=== PATIENT | male | born 1950 ===

== ENCOUNTER → 2018-08-30 | Outpatient (CLI) | payer MEDICARE, BC ==
--- NOTE | 2018-08-30 08:39 | RADIOLOGY REPORT (SQ) ---
EXAM DESCRIPTION: MRI LUMBAR SPINE WITHOUT COMPLETED DATE/TIME: 08/30/2018 7:53 am REASON FOR STUDY: LUMBAR RADICULOPATHY (M54.16) M54.16 RADICULOPATHY, LUMBAR REGION COMPARISON: None. TECHNIQUE: Sagittal and Axial imaging includes T1, T2, STIR and gradient echo sequences. Coronal T2/ HASTE imaging. LIMITATIONS: None. FINDINGS: VISUALIZED UPPER ABDOMEN: Limited evaluation. No acute or suspicious findings suggested. SEGMENTATION: No transitional anatomy. The lowest well-developed disc space is labeled L5-S1. ALIGNMENT: Anatomic. VERTEBRAE: Intact. BONE MARROW: Normal. No marrow replacement or reactive changes. DISC SIGNAL: Normal. No significant abnormal signal or loss of height. POSTERIOR ELEMENTS: Generally intact. No pars defect evident. HARDWARE: None in the spine. CORD AND CONUS: Normal in size and signal intensity. Conus at the appropriate level. SOFT TISSUES: No aortic aneurysm seen. No bulky retroperitoneal adenopathy or mass. No paraspinal mas s or fluid. L1-L2: No significant spinal stenosis or exit foraminal stenosis. L2-L3: No significant spinal stenosis or exit foraminal stenosis. L3-L4: No significant disc bulge. Moderate facet arthropathy with ligamentum flavum thickening. Mil d spinal stenosis and lateral recess stenosis. No significant exit foraminal stenosis. L4-L5: Minimal diffuse posterior disc bulge. Mild facet arthropathy. No significant spinal stenosis or exit foraminal stenosis. L5-S1: Mild central disc protrusion. Suspect a small right lateral disc herniation best visualized o n sagittal image 7. Right lateral recess stenosis. No significant exit foraminal stenosis. LOWER THORACIC: Incompletely imaged. No stenosis seen. SACRUM: Visualized upper sacrum intact. OTHER: No other significant findings. IMPRESSION: 1. MILD CENTRAL DISC PROTRUSION AT L5-S 1. SUSPECT A SMALL RIGHT LATERAL DISC HERNIATION RESULTING I N RIGHT LATERAL RECESS STENOSIS. 2. FACET ARTHROPATHY AT L3-L4 WITH LIGAMENTUM FLAVUM THICKENING RESULTING IN MILD SPINAL STENOSIS AND LATERAL RECESS STENOSIS. 3. MILD DEGENERATIVE CHANGES AT L4-L5 ABOVE. TECHNICAL DOCUMENTATION: JOB ID: [id number] [employer]- All Rights Reserved Reading location - IP/workstation name: [email or web address]
== END ==
LOC: RAD 14:06
PROVIDERS: ATTEND Chiropractor
DX: M54.16 Radiculopathy, lumbar region (principal); M48.061 Spinal stenosis, lumbar region without neurogenic claudication
CPT/HCPCS: 72148